=== PATIENT | female | born 1995 | race Caucasian/White ===

== ENCOUNTER → 2018-05-01 | Outpatient (CLI) | payer BC ==
[~2018-05-01] MED LIST: HYDR-653 PO; SERT-173 PO
--- NOTE | 2018-05-01 16:34 | RADIOLOGY IMAGING REPORT ---
FACILITY: [facility] [place] PATIENT NAME: Aminata Lui : 1995 MR: [id number] V: [id number] EXAM DATE: ORDERING PHYSICIAN: ARA DELUNA TECHNOLOGIST: Location: [facility] Patient: Aminata Lui : 1995 Visit/Account:[id number] Date of Sevice: 05/01/2018 FOOT 3 VIEW RIGHT Indication: Lateral foot pain after injury Comparison: None Available Findings: No evidence of fracture, dislocation, or acute osseous abnormality of the right foot. There is no focal soft tissue abnormality. No evidence of radiopaque foreign body. IMPRESSION: 1.No acute osseous abnormality of the right foot Report Dictated By: Dalton Norman at 05/01/2018 4:29 PM Report E-Signed By: Dalton Norman at 05/01/2018 4:29 PM WSN:[id number]
== END ==
LOC: RAD 15:36
PROVIDERS: ATTEND Pediatrics Adolescent Medicine
DX: M79.671 Pain in right foot (principal)

== ENCOUNTER 2018-06-01 02:42 | Emergency (ER) | payer BC ==
[2018-06-01 02:47] VITALS: BP 124/72
--- NOTE | 2018-06-01 02:48 | ER Report ---
History and Physical Time Seen By MD: 02:44 HPI/ROS CHIEF COMPLAINT: Urticaria HISTORY OF PRESENT ILLNESS: 23-year-old female presents with rash over her legs, arms and abdomen and back. She notes all mics confluent urticaria. She has severe itching. She's been taking Benadryl for 2 days without improvement. She states the rash started on the back of her thighs and spread from there. She denies new hygiene products, soaps or food ingestion. Organic and doesn't use any harsh products. She notes no throat swelling, no URI, fever, chills or rhinitis. She notes no difficulty breathing or wheezing. REVIEW OF SYSTEMS: Respiratory: No cough, no dyspnea. Cardiovascular: No chest pain, no palpitations. Gastrointestinal: No vomiting, no abdominal pain. Musculoskeletal: No back pain. Allergies: Uncoded Allergies: CHLORINE (Adverse Reaction, Unknown, EXCEMA, 05/19/14) Home Meds Active Scripts Prednisone (PREDNISONE) 20 Mg Tablet, 20 MG PO QDAY, #6 2 by mouth daily for 2 days, then 1 by mouth daily for 2 days Prov:SCOTTY SPRINGER DO 06/01/18 Hydrocodone Bit/Acetaminophen (NORCO 5-325 TABLET) 1 Each Tablet, 1 EACH PO Q4- 6H, #20 Prov:ANDERS DOHERTY DO 07/24/14 Reported Medications Sertraline Hcl (ZOLOFT) 100 Mg Tablet, 1 TAB PO QDAY TAKE ONE TABLET BY MOUTH EVERY DAY 07/24/14 [None] No Conflict Check 05/19/14 Reviewed Nurses Notes: Yes Old Medical Records Reviewed: Yes Hx Smoking: No Smoking Status: Light Tobacco Smoker Hx Substance Use Disorder: Yes (MARIJUANA) Hx Alcohol Use: Yes (RARELY) Constitutional Vital Sign - Last 24 Hours 06/01/18 02:47 Temp 97.7 Pulse 56 Resp 17 B/P (MAP) 124/72 Pulse Ox 100 O2 Delivery Room Air Physical Exam General Appearance: patient is alert, has no immediate need for airway protection and no current signs of toxicity. Vital signs stable, afebrile, pulse ox normal HEENT: Pupils equal and round no injection. TMs normal, oropharynx, no redness or exudate, mucous. Membranes are moist Respiratory: Chest is non tender, lungs are clear to auscultation. No wheezing or rails Cardiac: regular rate and rhythm Gastrointestinal: Abdomen is soft and non tender, no masses, bowel sounds normal. Musculoskeletal: Neck: Neck is supple and non tender. No lymphadenopathy, no thyromegaly Extremities have full range of motion and are non tender. Skin: Diffuse nearly confluent hives on posterior thighs, anterior thighs, there are diffuse hives on the back and arms bilaterally. There are a few on the neck DIFFERENTIAL DIAGNOSIS: After history and physical exam differential diagnosis was considered for rash, urticaria, drug eruption, contact dermatitis Medical Decision Making ED Course/Re-evaluation ED Course Patient was admitted to an examination room. H&P was done. The differential diagnoses was considered. Patient covered in hives with severe itching. Benadryl was not relieved her symptoms. She likely is having an allergic reaction to something, although history does not indicate a source nor does the onset of the rash give us any clues. Patient be treated with prednisone taper. She is given 60 mg here in the ER. She is advised to continue Benadryl 25 mg 3 times daily. A prednisone taper is provided of 40 mg for 3 days, 20 mg 3 days. Patient advised to follow-up with primary care if unimproved in 4-7 days. Decision to Disposition Date: Jun 01, 2018 Decision to Disposition Time: 03:00 Depart Departure Latest Vital Signs Vital Signs Date Time Temp Pulse Resp B/P (MAP) Pulse Ox O2 Delivery O2 Flow Rate FiO2 06/01/18 02:47 97.7 56 17 124/72 100 Room Air Impression: Primary Impression: Urticaria Condition: Improved Disposition: HOME OR SELF-CARE New Scripts Prednisone (PREDNISONE) 20 Mg Tablet 20 MG PO QDAY, #6 2 by mouth daily for 2 days, then 1 by mouth daily for 2 days Prov: SCOTTY SPRINGER DO 06/01/18 Patient Instructions: Urticaria (ED) Additional Instructions: Continue Benadryl 25 mg every 6-8 hours as needed for itching or hives May also benefit from taking Pepcid 20 mg per day. It is a 2nd kind of antihistamine tammy Follow-up with primary care if unimproved in 4-7 days SCOTTY SPRINGER DO Jun 01, 2018 02:48
[2018-06-01] MEDS ORDERED: predniSONE 20 MG TAB PO ONE (03:05)
[2018-06-01] MEDS ORDERED: FAMOTIDINE 20 MG TAB PO ONE (03:05)
[2018-06-01] MEDS ORDERED: PRED20TA6 PO (03:08)
== END 2018-06-01 03:21 | disposition home or self-care (01) ==
LOC: ER 03:00
DX: L50.9 Urticaria, unspecified (principal)
CPT/HCPCS: 99283; J7512